=== PATIENT | female | born 1975 | race Caucasian/White ===

== ENCOUNTER → 2023-11-05 06:52 | Outpatient (REF) | payer BC, SELFPAY | LOC: WDC 06:52 | PROVIDERS: ATTENDING PHYSICIAN Nurse Practitioner Obstetrics & Gynecology | DX: Z12.31 Encounter for screening mammogram for malignant neoplasm of breast (principal) | CPT/HCPCS: 77063; 77067 ==

== ENCOUNTER 2024-06-22 06:16 | Day surgery (SDC) | payer BC, SELFPAY | END 2024-06-22 12:59 | disposition home or self-care (01) | LOC: GI 06:16 | PROVIDERS: ATTENDING PHYSICIAN Internal Medicine | DX: Z12.11 Encounter for screening for malignant neoplasm of colon (principal); D12.5 Benign neoplasm of sigmoid colon; K63.5 Polyp of colon | CPT/HCPCS: 45385; 45380; 88305 ==

== ENCOUNTER 2025-01-03 00:30 | Emergency (ER) | payer BC, SELFPAY ==
[2025-01-03 00:33] VITALS: BP 145/104
[2025-01-03 01:03] LABS: HCG, Serum Qualitative Screen Negative
[2025-01-03 01:10] LABS: Hematocrit 37.7 % (37.0-47.0); Hemoglobin 12.5 g/dL (12.0-16.0); Mean Corp Hgb Conc. 33.2 g/dL (33.0-37.0); Mean Corpuscular Volume 87.1 fL (81.0-99.0); Nucleated Red Blood Cells % 0 %; Platelet Count 268 10^3/uL (130-400); Red Cell Dist. Width 13.2 % (11.5-14.5)
[2025-01-03 01:33] LABS: ALT (SGPT) 15 U/L (0-35); AST (SGOT) 20 U/L (14-36); Albumin 4.7 g/dl (3.5-5.0); Alkaline Phosphatase 80 U/L (38-126); Blood Urea Nitrogen 12 mg/dl (7-17); Calcium 10.2 mg/dl (8.4-10.2); Carbon Dioxide 25 mmol/L (22-30); Chloride 104 mmol/L (98-107); Glucose 115 mg/dl (70-99); Lipase 363 U/L (23-300); Potassium 4.4 mmol/L (3.5-5.1); Sodium 139 mmol/L (135-145); Total Protein 7.3 g/dl (6.3-8.2); eGFR > 60.00
[2025-01-03 03:00] VITALS: BP 127/73
--- NOTE | 2025-01-03 04:17 | ED.GENMED ---
History of Present Illness
<Romy Wright MD, Resident - Last Filed: 01/03/25 07:47>
General
Chief Complaint: Abdominal Pain
Source: patient and significant other
Exam Limitations: none
Time Seen by Provider: 01/03/25 04:16
Nursing documentation reviewed up to this point in time: agreed with
History of Present Illness
History of Present Illness:
49-year-old female with past medical history of gastric reflux comes to the ED due to epigastric pain that started around 10 PM. Pain was in the epigastric region and reminded her of her original episode that she had with gastric reflux back when
she was in eighth grade. She had eaten scalloped potatoes and had a cup of coffee at 4 PM. She had a history of acid reflux with her previous acute exacerbation being around 3 to 4 months ago where she had very bad heartburn. She took Mylanta 60
mL as well as Prilosec but her symptoms did not resolve, prompting her to come to the ED. He does not drink any alcohol and tries to control her diet with foods that are less acidic. Currently her symptoms have resolved and she is feeling much
better.
Past History
<Romy Wright MD, Resident - Last Filed: 01/03/25 07:47>
Past History
ED Past Medical History: GERD
ED Past Surgical History:
Social History
Tobacco: Non-smoker
Alcohol: None
Personal:
Living: with family
Review of Systems
<Romy Wright MD, Resident - Last Filed: 01/03/25 07:47>
Review of Systems
Allergies reviewed?: Yes
All Other Systems: ROS reviewed and negative except as documented in HPI and ROS
Constitutional: Denies fever, fatigue or chills
EENT: Reports no symptoms
Respiratory: Reports no symptoms
Cardiac: Reports no symptoms
ABD/GI: Reports abdominal pain and nausea; Denies vomiting, diarrhea or constipated
: Reports no symptoms
Musculoskeletal: Reports no symptoms
Skin: Reports no symptoms
Neurological: Reports no symptoms
Endocrine: Reports no symptoms
Hematologic/Lymphatic: Reports no symptoms
Psychiatric: Reports no symptoms
Phy Exam
<Romy Wright MD, Resident - Last Filed: 01/03/25 07:47>
General Physical Exam
General Presentation: well appearing and no apparent distress
General Skin: warm and dry
General Habitus: normal
General Mental: alert
General Hydration: appears well hydrated
Cardiovascular Exam
Cardiovascular Exam: regular rate/rhythm, no edema and no murmur
Pulmonary Exam
Pulmonary Exam: lungs clear, no respiratory distress, no crackles and no wheezing
Gastrointestinal Exam
Gastrointestinal Exam: normal bowel sounds, non tender, soft and non distended
Skin Exam
Skin Exam: normal color and warm/dry
Course
<Romy Wright MD, Resident - Last Filed: 01/03/25 07:47>
Orders/Labs/Results
Orders:
Orders
01/03/25 00:37
Electrocardiogram (*1) Urgent
Reason for Study: Abdominal Pain
01/03/25 00:38
EKG- Treatment ONCE
Test Result ONCE
01/03/25 00:44
Complete Blood Count/With Diff Urgent
Comprehensive Metabolic Panel Urgent
HCG, Serum Qualitative Screen Urgent
Comment: Notify provider if positive test present
Lipase Urgent
01/03/25 05:26
US Abdomen Complete/Upper Urgent
Comment:
Reason For Exam: acute epigastric pain. elevated lipase
Abnormal Lab Results
01/03/25
00:44
Absolute Monos (auto) 0.8 H 10^3/uL
(0.1-0.6)
Immature Gran % 0.6 H %
(0-0.5)
Monocytes % 12.4 H %
(1.7-9.3)
Glucose 115 H mg/dl
(70-99)
Lipase 363 H U/L
(23-300)
01/03/25 00:44
01/03/25 00:44
Vital Signs
Initial and Last Documented VS:
Initial Vital Signs
Temp Pulse Resp BP Pulse Ox
98.7 F 105 24 145/104 96
01/03/25 00:33 01/03/25 00:33 01/03/25 00:33 01/03/25 00:33 01/03/25 00:33
Last Documented Vital Signs
Temp Pulse Resp BP Pulse Ox
98.7 F 63 18 99/74 99
01/03/25 00:33 01/03/25 07:18 01/03/25 07:18 01/03/25 07:18 01/03/25 07:18
<Shannan Mora, DO - Last Filed: 01/03/25 07:45>
Orders/Labs/Results
Orders:
Orders
01/03/25 00:37
Electrocardiogram (*1) Urgent
Reason for Study: Abdominal Pain
01/03/25 00:38
EKG- Treatment ONCE
Test Result ONCE
01/03/25 00:44
Complete Blood Count/With Diff Urgent
Comprehensive Metabolic Panel Urgent
HCG, Serum Qualitative Screen Urgent
Comment: Notify provider if positive test present
Lipase Urgent
01/03/25 05:26
US Abdomen Complete/Upper Urgent
Comment:
Reason For Exam: acute epigastric pain. elevated lipase
Abnormal Lab Results
01/03/25
00:44
Absolute Monos (auto) 0.8 H 10^3/uL
(0.1-0.6)
Immature Gran % 0.6 H %
(0-0.5)
Monocytes % 12.4 H %
(1.7-9.3)
Glucose 115 H mg/dl
(70-99)
Lipase 363 H U/L
(23-300)
01/03/25 00:44
01/03/25 00:44
Vital Signs
Initial and Last Documented VS:
Initial Vital Signs
Temp Pulse Resp BP Pulse Ox
98.7 F 105 24 145/104 96
01/03/25 00:33 01/03/25 00:33 01/03/25 00:33 01/03/25 00:33 01/03/25 00:33
Last Documented Vital Signs
Temp Pulse Resp BP Pulse Ox
98.7 F 63 18 99/74 99
01/03/25 00:33 01/03/25 07:18 01/03/25 07:18 01/03/25 07:18 01/03/25 07:18
<Romy Wright MD, Resident - Last Filed: 01/03/25 07:47>
MDM/Problems Addressed
Differential Diagnosis Includes:
Biliary colic, gastric reflux disease, acute cholecystitis, pancreatitis
MDM/Problems Addressed:
49-year-old female with past medical history of gastric reflux disease comes to the ED due to increased epigastric pain and nausea that began around 10 PM last night.
No leukocytosis, lipase levels increased
Symptoms resolved while in the ED
Will get ultrasound of the gallbladder to see if there are any gallstones
Persistent abdominal symptoms may be related to gallbladder disease
Chronic conditions affecting care: Other (Gastroesophageal reflux)
<Romy Wright MD, Resident - Last Filed: 01/03/25 07:47>
*Pulse Oximetry
SaO2: 100
Oxygen Mode of Delivery: Room air
Patient hypoxic: no
*Critical Care Note
Total Time (30-74mins, 75-104mins- exclusive of procedures): Not Applicable
ED Attending Note
<Romy Wright MD, Resident - Last Filed: 01/03/25 07:47>
-
Portions of this chart may have been created with voice recognition software.� Occasional wrong word or��sound alike� substitutions may have occurred due to the inherent limitations of voice recognition software.
<Shannan Mora DO - Last Filed: 01/03/25 07:45>
ED Attending Note
Patient seen and examined by attending physician: Yes
I performed the substantive portion of visit, reviewed & personally made and approve the management plan that is documented in note by myself or FLETCHER.: Yes
ED Attending Note:
This is a 49-year-old woman with history of GERD, takes omeprazole intermittently perhaps 3 times per week.
She admits to intermittent episodes of 'GERD' attacks which generally occur at nighttime, usually 3 to 4 hours after dinner and after lying down. Her GERD attacks are moderate to severe epigastric pain and occasionally lower substernal pain and
generally last for 3 hours then resolved. Tonight's attack was quite severe bringing her to tears and unrelieved with Mylanta as well as Prilosec. She denies nausea. No coughing or shortness of breath, no diaphoresis. She had similar moderate to
severe GERD attack perhaps 2 months ago.
Currently pain-free and comfortable.
49-year-old woman appears her stated age, bright and alert, pleasant, appears in no acute distress. is accompanying.
Appears euvolemic
Abdomen is soft without appreciable tenderness.
Concern for acute biliary colic, cholecystitis, acute gastritis, GERD, pancreatitis, colitis, small bowel obstruction, ACS.
Labs thus far unremarkable save for mildly elevated lipase of 363.
EKG is unremarkable, normal sinus rhythm, normal axis, normal intervals, no acute ST-T wave abnormalities. No risk factors for CAD.
Reassuring that patient is currently pain-free and comfortable. Acute pancreatitis is much less likely.
Will check abdominal ultrasound, assess for cholelithiasis.
Discharge Plan
Departure
Patient with high blood pressure during this ER visit?: No
Condition: Good
Discharge Problem:
GERD (gastroesophageal reflux disease), Biliary colic symptom
Instructions: Acid Reflux and GERD in Adults (DC), Gallstones (DC), Low-fat diet
Prescriptions:
No Action
prenat.vits,oly,[id number] Tablet
1 tab PO DAILY
omeprazole magnesium [Prilosec OTC] 20 mg Tablet,Delayed Release (Dr/Ec)
20 mg PO DAILY
acetaminophen 325 mg Tablet
650 mg PO Q4HPRN PRN (Reason: mild pain) Qty: 30 0RF
ibuprofen 600 mg Tablet
600 mg PO Q6HPRN PRN (Reason: cramps) Qty: 30 0RF
Referrals:
Mario Parson MD [Active, Gastroenterology] - Call in 1-3 days for appt
Referral Note: Follow-up with gastroenterology for further workup of history of GERD
Rober Lance MD [Active, Surgical] - Call in 1-3 days for appt
UNKNOWN - PT DOES,NOT KNOW [Family Provider]
Interventions
Interventions:
*Risk Screen - Suicide Last Done: 01/03/25 00:33
*General Assessment Last Done: 01/03/25 00:33
*Neglect/Abuse Screening Last Done: 01/03/25 00:33
*ED- Fall Risk Assessment Last Done: 01/03/25 04:00
*ED COVID-19 Vaccine History Last Done: 01/03/25 04:00
BV-Wukaxb-Vuzkzoqose Assessment Last Done: 01/03/25 04:00
Discharge Date and Time
Print Language: BAHRAINI
[2025-01-03 07:18] VITALS: BP 99/74
== END 2025-01-03 09:29 | disposition home or self-care (01) ==
LOC: EMR 00:30
PROVIDERS: EMERGENCY PHYSICIAN Emergency Medicine
DX: K21.9 Gastro-esophageal reflux disease without esophagitis (principal); K80.50 Calculus of bile duct without cholangitis or cholecystitis without obstruction
CPT/HCPCS: 99284; 76700; 80053; 83690; 84703; 85025; 93005